=== PATIENT | male | born 1985 | race Two or more races ===

== ENCOUNTER 2020-01-04 08:14 | Emergency (ER) | payer OTHER ==
[~2020-01-04] VITALS: Ht 167.6 cm; Wt 102.1 kg
--- NOTE | 2020-01-04 08:20 | NUR ---
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 AWAITING MD BAILEY.
[2020-01-04] MEDS ORDERED: FAMOTIDINE/PF INJ 20 MG/2 ML VIAL IV ONE ×2 (08:54→09:00)
[2020-01-04] MEDS ORDERED: diphenhydrAMINE HCL 50 MG/ML VIAL ONE (08:54)
[2020-01-04] MEDS ORDERED: methylPREDNISolone SOD SUCC 125 MG/2ML VIAL ONE (08:54)
[2020-01-04] MEDS ORDERED: diphenhydrAMINE HCL 50 MG/ML VIAL IV ONE (09:00)
[2020-01-04] MEDS ORDERED: IV NS 0.9% 1,000 ML BAG IV ONE (09:00)
[2020-01-04] MEDS ORDERED: methylPREDNISolone SOD SUCC 125 MG/2ML VIAL IV ONE (09:00)
[2020-01-04 09:09] LABS: BASOPHILS % (AUTO) 0.2 % (0.0-2.0); EOSINOPHILS % (AUTO) 1.5 % (0.0-6.0); HEMATOCRIT 50 % (39-51); HEMOGLOBIN 16.3 g/dL (13.5-17.5); LYMPHOCYTES # (AUTO) 1.5 /CMM (0.8-4.8); LYMPHOCYTES % (AUTO) 14.4 % (20.0-44.0); MEAN CORPUSCULAR HGB CONC 33 g/dl (31.0-36.0); MEAN CORPUSCULAR VOLUME 90 fL (80-96); MONOCYTES # (AUTO) 0.5 /CMM (0.1-1.30); MONOCYTES % (AUTO) 4.6 % (2.0-12.0); NEUTROPHILS % (AUTO) 79.3 % (43.0-81.0); PLATELET COUNT (AUTO) 194 /CMM (150-450); RED BLOOD CELL COUNT(AUTO) 5.55 MIL/uL (4.5-6.0); WHITE BLOOD COUNT (AUTO) 10.1 K/uL (4.3-11.0)
[2020-01-04 09:14] LABS: CALCIUM, SERUM 8.3 mg/dL (8.5-10.1); CREATININE 1.4 mg/dL (0.6-1.3); POTASSIUM 3.2 mmol/L (3.5-5.1)
--- NOTE | 2020-01-04 09:40 | NUR ---
PANEL PAGED. AWAITING HOSPITALIST CALL BACK.
--- NOTE | 2020-01-04 09:48 | NUR ---
IV removed. Catheter intact and site benign. Pressure and 4x4 applied to site. No bleeding noted.Patient discharged to home in stable condition. Written and verbal after care instructions given. Patient verbalizes understanding of instruction. Instructed not to drive
[2020-01-04 09:52] VITALS: BP 124/82
== END 2020-01-04 09:57 | disposition home or self-care (01) ==
LOC: ER 08:14 → EDBD 08:14 → ER 09:57
DX: R42 Dizziness and giddiness (principal); T78.1XXA Other adverse food reactions, not elsewhere classified, initial encounter; T39.315A Adverse effect of propionic acid derivatives, initial encounter; Y92.89 Other specified places as the place of occurrence of the external cause
CPT/HCPCS: 36415; 80048; 85025; 96361; 96374; 96375; 99284; J1200; J2930; J3490; J7030